=== PATIENT | female | born 1970 | race Caucasian/White ===

== ENCOUNTER → 2016-12-22 | Outpatient (CLI) | payer OTHER ==
[~2016-12-22] MED LIST: ALBUTEROL2.5 MG/0.1 INH; CLONAZEPAM 1 MG1 M1 PO
[2016-12-22 15:49] LABS: ABSOLUTE NEUTROPHILS 4.4 thou/uL (1.4-8.2); BASOPHILS 0.6 % (0.0-2.0); EOSINOPHILS 1.5 % (0.0-3.0); HEMATOCRIT 32.9 % (37.0-47.0); HEMOGLOBIN 11.2 gm/dL (12.0-15.0); LYMPHOCYTES 31.3 % (24.0-44.0); MCH 27.8 pg (26.0-34.0); MCHC 34.1 % (28.0-37.0); MCV 81.4 fL (80.0-100.0); MONOCYTES 7.9 % (1.0-8.0); PLATELET COUNT 341 thou/uL (150-400); POLYS 58.7 % (36.0-66.0); RBC 4.04 mil/uL (4.20-5.00); RDW 15.3 % (10.5-14.5); WBC 7.5 thou/uL (4.0-11.0)
[2016-12-22 15:52] LABS: MANUAL DIFF NO
== END ==
LOC: ULTRA 05:03
PROVIDERS: Obstetrics & Gynecology
DX: N93.9 Abnormal uterine and vaginal bleeding, unspecified (principal); D25.9 Leiomyoma of uterus, unspecified; R10.2 Pelvic and perineal pain